=== PATIENT | male | born 1960 | race Caucasian/White ===

== ENCOUNTER → 2020-06-07 | Outpatient (CLI) | payer MEDICARE, OTHER ==
[~2020-06-07] MED LIST: AMLODIPINE BESYL5 MG PO; CIPRO500 MG PO; CLEOCIN HCL300 MG PO; COZAAR100 MG PO; CYMBALTA 30 MG30 MG PO; DOCUSATE SODIU100 MG PO; ELIQUIS5 MG PO; FLAGYL500 MG PO; HUMALOG 10100 UNITS/ SC; HYDRALAZINE HCL25 MG PO; HYTRIN CAP 5 MG5 MG PO; LANTUS SOL100 UNIT/1 SQ; LASIX20 MG PO; LASIX40 MG PO; LOPRESSOR 25 MG25 MG PO; MAXIPIME 2 GM VI2 GM IM; MUPIROCIN22 GM TOP; NEURONTIN400 MG PO; NIFEDIPINE ER30 M1 PO; NORVASC10 MG PO; NOVOLOG FL100 UNIT/1 SQ; OLANZAPINE15 MG PO; POLYETHYLENE GL17 GM PO; PROTONIX 40 MG40 M1 PO; RENVELA800 MG PO; SYNTHROID175 MCG PO; TENORMIN100 MG PO; ULTRAM50 MG PO; VANCOMYCIN HCL1 GM IV
== END ==
LOC: WCC 15:00
DX: E11.621 Type 2 diabetes mellitus with foot ulcer (principal); L97.522 Non-pressure chronic ulcer of other part of left foot with fat layer exposed; L97.523 Non-pressure chronic ulcer of other part of left foot with necrosis of muscle; I10 Essential (primary) hypertension; I73.9 Peripheral vascular disease, unspecified; E66.01 Morbid (severe) obesity due to excess calories
CPT/HCPCS: 97597

== ENCOUNTER → 2020-07-05 | Outpatient (CLI) | payer MEDICARE, OTHER | LOC: WCC 16:00 | PROC: 0JBR0ZZ Excision of Left Foot Subcutaneous Tissue and Fascia, Open Approach (ICD-10-PCS; principal; 2020-07-05) | DX: E11.621 Type 2 diabetes mellitus with foot ulcer (principal); L97.522 Non-pressure chronic ulcer of other part of left foot with fat layer exposed; Z79.4 Long term (current) use of insulin; Z79.899 Other long term (current) drug therapy; Z88.2 Allergy status to sulfonamides | CPT/HCPCS: 87070; 87205 ==

== ENCOUNTER → 2020-07-23 | Outpatient (CLI) | payer MEDICARE, OTHER | LOC: EXRD 07-09 15:45 | DX: L97.522 Non-pressure chronic ulcer of other part of left foot with fat layer exposed (principal); I73.9 Peripheral vascular disease, unspecified | CPT/HCPCS: 93926 ==

== ENCOUNTER 2020-08-18 17:11 | Emergency (ER) | payer MEDICARE, OTHER ==
[~2020-08-18] VITALS: Ht 193 cm; Wt 147.4 kg
[~2020-08-18 17:11] MED LIST changes: -AMLODIPINE BESYL5 MG PO; -DOCUSATE SODIU100 MG PO; -ELIQUIS5 MG PO; -FLAGYL500 MG PO; -HUMALOG 10100 UNITS/ SC; -LOPRESSOR 25 MG25 MG PO; -MAXIPIME 2 GM VI2 GM IM; -MUPIROCIN22 GM TOP; -POLYETHYLENE GL17 GM PO; -PROTONIX 40 MG40 M1 PO; -RENVELA800 MG PO; -VANCOMYCIN HCL1 GM IV
[2020-08-18 17:32] LABS: HEMOGLOBIN 12.3 gm/dl (14.0-17.5); RED BLOOD COUNT 3.85 M/UL (4.20-5.50)
[2020-08-18 17:54] LABS: BUN/CREATININE RATIO 10 (0-10)
[2020-08-18] MEDS ORDERED: RENVELA800 MG PO (20:56)
[2020-08-19 04:15] LABS: HEMOGLOBIN 11.9 gm/dl (14.0-17.5); RED BLOOD COUNT 3.7 M/UL (4.20-5.50); WHITE BLOOD COUNT 8.3 K/UL (4.5-11.0)
[2020-08-19] MEDS ORDERED: ELIQUIS5 MG PO (20:58)
[2020-08-20 08:13] LABS: HBSAG SCREEN Negative (Negative); HEP A AB, IGM Negative (Negative); HEP B CORE AB, IGM Negative (Negative); HEP C VIRUS AB 0.1 (0.0-0.9)
== END 2020-08-19 19:50 | disposition home or self-care (01) ==
LOC: ER1 17:11 → CDU 18:16 → ER1 08-19 19:50
PROVIDERS: Emergency Medicine; Physician Assistant Medical
DX: I12.0 Hypertensive chronic kidney disease with stage 5 chronic kidney disease or end stage renal disease (principal); N18.6 End stage renal disease; E11.22 Type 2 diabetes mellitus with diabetic chronic kidney disease; Z20.822 Contact with and (suspected) exposure to COVID-19; Z90.49 Acquired absence of other specified parts of digestive tract; Z88.2 Allergy status to sulfonamides; Z88.8 Allergy status to other drugs, medicaments and biological substances; Z99.2 Dependence on renal dialysis
CPT/HCPCS: 36415; 71045; 80048; 80053; 80074; 82550; 82553; 82962; 83735; 83874; 84484; 85025; 85027; 90935; 93005; 96372; 96374; 99284; G0257; J1650; U0002

== ENCOUNTER → 2020-10-11 | Outpatient (CLI) | payer MEDICARE, OTHER ==
[~2020-10-11] MED LIST changes: +AMLODIPINE BESYL5 MG PO; +DOCUSATE SODIU100 MG PO; +ELIQUIS5 MG PO; +FLAGYL500 MG PO; +HUMALOG 10100 UNITS/ SC; +LOPRESSOR 25 MG25 MG PO; +MAXIPIME 2 GM VI2 GM IM; +MUPIROCIN22 GM TOP; +POLYETHYLENE GL17 GM PO; +PROTONIX 40 MG40 M1 PO; +RENVELA800 MG PO; +VANCOMYCIN HCL1 GM IV
== END ==
LOC: WCC 15:00
DX: Z48.00 Encounter for change or removal of nonsurgical wound dressing (principal)
CPT/HCPCS: G0463

== ENCOUNTER 2020-11-14 15:30 | Inpatient (IN) | payer MEDICARE, OTHER ==
[~2020-11-14] VITALS: Ht 195.6 cm; Wt 153.0 kg
[~2020-11-14 15:30] MED LIST changes: -AMLODIPINE BESYL5 MG PO; -DOCUSATE SODIU100 MG PO; -FLAGYL500 MG PO; -HUMALOG 10100 UNITS/ SC; -LOPRESSOR 25 MG25 MG PO; -MAXIPIME 2 GM VI2 GM IM; -MUPIROCIN22 GM TOP; -POLYETHYLENE GL17 GM PO; -PROTONIX 40 MG40 M1 PO; -VANCOMYCIN HCL1 GM IV
[2020-11-14 16:28] LABS: HEMOGLOBIN 12.6 gm/dl (14.0-17.5); RED BLOOD COUNT 3.88 M/UL (4.20-5.50); WHITE BLOOD COUNT 4.7 K/UL (4.5-11.0)
--- NOTE | 2020-11-15 03:33 | NUR ---
11/13/20 1022 aCCU CHECK 529. PT ALERT ORIENTED. C/O BEING THRIST THATS THE ONLY SYMPTOM PT C/O, HUMULIN R 10 UNITS IV GIVEN. WILL RECHECK BLOOD SUGAR AND MONITOR.
--- NOTE | 2020-11-15 03:56 | NUR ---
11/14/20 2210 ABD HARD AND DISTENDED
--- NOTE | 2020-11-15 04:14 | NUR ---
11/13/20 0843 PT THINKS HE KNOWS WHAT MEDS BUT DOES NOT KNOW THE DOSE OF THEM. PT STATES HE USES [facility] IN [facility].
[2020-11-15 04:20] LABS: HEMOGLOBIN 12.1 gm/dl (14.0-17.5); RED BLOOD COUNT 3.81 M/UL (4.20-5.50)
[2020-11-15 04:44] LABS: BUN/CREATININE RATIO 13 (0-10)
--- NOTE | 2020-11-15 05:27 | NUR ---
11/15/20 0520 PT VOMITTED UP ABOUT 200 CC OF COCA COLA COLOR EMESIS. WILL NOTIFY
--- NOTE | 2020-11-15 10:05 | NUR ---
@[address] JENKINS PATIENT'S CONDITION AND HE ACKNOWLEDGED
--- NOTE | 2020-11-15 15:36 | NUR ---
RECEIVED INFORMATION FROM PHARMACY TO GIVE 2000ML OF GOLYTELY. DR. MCFARLANE GAVE ORDER OK'D TO INSERT 10FR OF NG TUBE.
--- NOTE | 2020-11-15 16:25 | NUR ---
SOAP SUDS ENEMA ADMINISTERED, PATIENT HORTENCIA WELL
[2020-11-16 04:19] LABS: HEMOGLOBIN 11.9 gm/dl (14.0-17.5); RED BLOOD COUNT 3.74 M/UL (4.20-5.50)
[2020-11-16 04:22] LABS: WHITE BLOOD COUNT 10.6 K/UL (4.5-11.0)
--- NOTE | 2020-11-16 15:05 | NUR ---
RECEIVED REPORT FROM DIALYSIS TODAY THAT PATIENT WAS NOT DIALYED ONLY BLOOD WAS FILTERED. PATIENT STAYED 4 HOURS IN DIALYSIS
--- NOTE | 2020-11-16 15:37 | NUR ---
SPOKEN WITH PHARMACIST NAN AND WAS INFORMED OK TO GIVE THE MEDICATIONS THAT WAS DUE AT 9, AND 1400
[2020-11-17 06:36] LABS: HEMOGLOBIN 11.4 gm/dl (14.0-17.5); RED BLOOD COUNT 3.6 M/UL (4.20-5.50); WHITE BLOOD COUNT 8.2 K/UL (4.5-11.0)
--- NOTE | 2020-11-18 12:15 | NUR ---
11/18/20 1210 MICHELLE DAUGHTER IN LAW CALLED CHECKING ON HIM, HAS INDU GARCÍA [employer]PER[employer] INFORMED. [phone]
--- NOTE | 2020-11-18 16:25 | NUR ---
11/18/20 1625 TO DIALYSIS SUITE VIA BED
[2020-11-19 04:52] LABS: HEMOGLOBIN 10.6 gm/dl (14.0-17.5); RED BLOOD COUNT 3.38 M/UL (4.20-5.50); WHITE BLOOD COUNT 7.8 K/UL (4.5-11.0)
[2020-11-20 06:32] LABS: HEMOGLOBIN 10.5 gm/dl (14.0-17.5); RED BLOOD COUNT 3.35 M/UL (4.20-5.50); WHITE BLOOD COUNT 9.3 K/UL (4.5-11.0)
--- NOTE | 2020-11-20 10:10 | NUR ---
11/20/20 0840 TO DIALYSIS SUITE
--- NOTE | 2020-11-20 14:05 | NUR ---
11/20/20 1315 BACK FROM DIALYSIS
[2020-11-23 02:59] LABS: HEMOGLOBIN 10.6 gm/dl (14.0-17.5); RED BLOOD COUNT 3.4 M/UL (4.20-5.50)
[2020-11-23] MEDS ORDERED: DOCUSATE SODIU100 MG PO (10:20)
[2020-11-23] MEDS ORDERED: VANCOMYCIN HCL1 GM IV (10:20)
[2020-11-23] MEDS ORDERED: POLYETHYLENE GL17 GM PO (10:20)
[2020-11-23] MEDS ORDERED: LOPRESSOR 25 MG25 MG PO (10:20)
[2020-11-23] MEDS ORDERED: MAXIPIME 2 GM VI2 GM IM (10:20)
[2020-11-23] MEDS ORDERED: MUPIROCIN22 GM TOP (10:20)
[2020-11-23] MEDS ORDERED: PROTONIX 40 MG40 M1 PO (10:20)
[2020-11-23] MEDS ORDERED: FLAGYL500 MG PO (10:20)
[2020-11-23] MEDS ORDERED: HUMALOG 10100 UNITS/ SC (10:20)
[2020-11-23] MEDS ORDERED: AMLODIPINE BESYL5 MG PO (10:20)
== END 2020-11-23 16:54 | DRG 727 ==
LOC: ER1 15:30 → CDU 18:13 → M/S 18:13
PROVIDERS: Emergency Medicine; Internal Medicine; ADMIT Internal Medicine
PROC: 5A1D70Z Performance of Urinary Filtration, Intermittent, Less than 6 Hours Per Day (ICD-10-PCS; principal; 2020-11-18)
DX: N49.2 Inflammatory disorders of scrotum (principal); N18.6 End stage renal disease; R53.2 Functional quadriplegia; I12.0 Hypertensive chronic kidney disease with stage 5 chronic kidney disease or end stage renal disease; E87.2 Acidosis; E87.1 Hypo-osmolality and hyponatremia; Z20.822 Contact with and (suspected) exposure to COVID-19; E03.9 Hypothyroidism, unspecified; F17.220 Nicotine dependence, chewing tobacco, uncomplicated; E86.0 Dehydration; E11.51 Type 2 diabetes mellitus with diabetic peripheral angiopathy without gangrene; G47.33 Obstructive sleep apnea (adult) (pediatric); E11.65 Type 2 diabetes mellitus with hyperglycemia; E78.5 Hyperlipidemia, unspecified; E86.1 Hypovolemia; D63.1 Anemia in chronic kidney disease; F31.9 Bipolar disorder, unspecified; E66.01 Morbid (severe) obesity due to excess calories; K59.00 Constipation, unspecified; E11.22 Type 2 diabetes mellitus with diabetic chronic kidney disease; Z99.2 Dependence on renal dialysis; Z79.4 Long term (current) use of insulin; Z89.511 Acquired absence of right leg below knee; Z74.01 Bed confinement status; Z88.5 Allergy status to narcotic agent; Z88.2 Allergy status to sulfonamides; Z88.8 Allergy status to other drugs, medicaments and biological substances; Z83.3 Family history of diabetes mellitus
CPT/HCPCS: 0240U; 36415; 51702; 71045; 74018; 80048; 80053; 80202; 81001; 82009; 82140; 82436; 82550; 82553; 82570; 82803; 82962; 83036; 83605; 83690; 83735; 83874; 83880; 84100; 84133; 84300; 84439; 84443; 84484; 85025; 85027; 85610; 85730; 86140; 87040; 87086; 90935; 90937; 93005; 94760; 96374; 96375; 96376; 97110; 97110-GP-CQ; 97162; 97167; 97530; 97530-GP-CQ; 99285; C9113; G0378; J0360; J2405; J2543; J3370; J7030; J7050; J7070